=== PATIENT | female | born 1990 | race Caucasian/White ===

== ENCOUNTER 2019-11-02 11:37 | Emergency (ER) | payer OTHER ==
[~2019-11-02 11:37] MED LIST: CEPHALEXIN500 M2 PO; MORGIDOX 1X100100 MG PO
[2019-11-02] MEDS ORDERED: SINGULAIR 110 MG/TAB PO (11:47)
[2019-11-02 12:41] VITALS: BP 156/81
== END 2019-11-02 12:38 | disposition home or self-care (01) ==
LOC: ED 11:37
DX: S93.402A Sprain of unspecified ligament of left ankle, initial encounter (principal); X50.1XXA Overexertion from prolonged static or awkward postures, initial encounter; Y92.009 Unspecified place in unspecified non-institutional (private) residence as the place of occurrence of the external cause
CPT/HCPCS: 15970; L4386

== ENCOUNTER 2021-11-27 16:52 | Emergency (ER) | payer MEDICAID ==
[~2021-11-27 16:52] MED LIST changes: +SINGULAIR 110 MG/TAB PO
[2021-11-27] MEDS ORDERED: DESYREL50 MG PO (17:05)
[2021-11-27] MEDS ORDERED: ESCITALOPRAM10 MG PO (17:05)
[2021-11-27] MEDS ORDERED: DIVALPROEX SOD250 MG PO (17:06)
[2021-11-27] MEDS ORDERED: FLUOXETINE40 MG PO (17:06)
[2021-11-27] MEDS ORDERED: RIZATRIPTAN BEN10 MG PO (17:06)
[2021-11-27] MEDS ORDERED: HYDROXYZINE HCL25 M1 PO (17:06)
[2021-11-27] MEDS ORDERED: PANTOPRAZOLE SO20 M1 PO (17:06)
[2021-11-27 17:46] LABS: BASO # 0.02 K/mm3 (0.02-0.10); EOS # 0.19 K/mm3 (0.04-0.40); EOS % 2.9 % (1.0-5.0); MEAN CELL VOLUME 95 fl (78-100); MEAN CORPUSCULAR HEMOGLOBIN 32 pg (27-31); MEAN CORPUSCULAR HGB CONC 34 g/dL (33-37); MEAN PLATELET VOLUME 9.5 fl (7.4-10.4); MONO # 0.53 K/mm3 (0.20-0.80); NEU # 3.72 K/mm3 (1.40-6.50); PLATELET COUNT 189 K/mm3 (130-400); RED BLOOD COUNT 4.02 M/mm3 (4.10-5.30); RED CELL DISTRIBUTION WIDTH 11.7 % (11.5-14.5); WHITE BLOOD COUNT 6.5 K/mm3 (4.8-10.8)
[2021-11-27 17:47] LABS: URINE WBC 0 /hpf (0-3)
[2021-11-27 18:00] LABS: ALBUMIN 4.1 g/dL (3.5-5.0); POTASSIUM 4.3 mmol/L (3.5-5.1)
[2021-11-27 18:01] LABS: CALCIUM 9.1 mg/dL (8.3-10.5)
[2021-11-27 18:03] LABS: TOTAL PROTEIN 7.2 g/dL (6.4-8.3)
[2021-11-27 18:04] LABS: TOTAL BILIRUBIN 0.4 mg/dL (0.2-1.2)
[2021-11-27 18:18] LABS: URINE APPEARANCE HAZY; URINE BILIRUBIN NEGATIVE (NEGATIVE); URINE COLOR YELLOW; URINE GLUCOSE NEGATIVE (NEGATIVE); URINE KETONE NEGATIVE (NEGATIVE); URINE NITRATE NEGATIVE (NEGATIVE); URINE PROTEIN(semi-quant) TRACE (NEGATIVE); URINE UROBILINOGEN NORMAL (NORMAL)
[2021-11-27 18:19] LABS: URINE BLOOD NEGATIVE (NEGATIVE); URINE LEUKOCYTE ESTERASE NEGATIVE (NEGATIVE); URINE MUCUS PRESENT (NOT PRESENT)
[2021-11-27 19:27] VITALS: BP 146/104
== END 2021-11-27 19:14 | disposition home or self-care (01) ==
LOC: ED 16:52
PROVIDERS: Family Medicine
DX: S93.402A Sprain of unspecified ligament of left ankle, initial encounter (principal); L03.116 Cellulitis of left lower limb; R10.31 Right lower quadrant pain; Z86.14 Personal history of Methicillin resistant Staphylococcus aureus infection; Z87.891 Personal history of nicotine dependence
CPT/HCPCS: J1885

== ENCOUNTER → 2022-03-20 | Outpatient (CLI) | payer BC, MEDICAID ==
[~2022-03-20] MED LIST changes: +DESYREL50 MG PO; +DIVALPROEX SOD250 MG PO; +ESCITALOPRAM10 MG PO; +FLUOXETINE40 MG PO; +HYDROXYZINE HCL25 M1 PO; +PANTOPRAZOLE SO20 M1 PO; +RIZATRIPTAN BEN10 MG PO
== END ==
LOC: VAS 13:29 → RAD 13:30
DX: M79.89 Other specified soft tissue disorders (principal)

== ENCOUNTER → 2022-03-23 | Outpatient (CLI) | payer MEDICAID | LOC: RAD 12:45 | DX: N63.10 Unspecified lump in the right breast, unspecified quadrant (principal) ==

== ENCOUNTER 2022-06-18 18:35 | Emergency (ER) | payer BC, MEDICAID ==
[~2022-06-18] VITALS: Ht 175.3 cm; Wt 124.5 kg
[2022-06-18] MEDS ORDERED: ORPHENADRINE C100 MG PO (20:38)
[2022-06-18] MEDS ORDERED: KETOROLAC10 MG PO (20:38)
[2022-06-18 20:47] VITALS: BP 136/73
== END 2022-06-18 20:48 | disposition home or self-care (01) ==
LOC: ED 18:35
DX: M54.50 Low back pain, unspecified (principal); Z87.891 Personal history of nicotine dependence; Z28.310 Unvaccinated for COVID-19
CPT/HCPCS: J1885; J2360

== ENCOUNTER → 2023-07-19 | Outpatient (CLI) | payer BC ==
[~2023-07-19] MED LIST changes: +AJOVY AUTO225 MG/1.5; +AMOXICILLIN AND1 TA2 PO; +CYCLOBENZAPRINE10 M1 PO; +DIVALPROEX SOD250 MG; +ELETRIPTAN HBR40 MG; +ESCITALOPRAM10 MG; +FENOFIBRATE145 MG; +FLUTICASON0.05 MG/Ac; +HYDROXYZINE HCL25 M1; +KETOROLAC10 MG PO; +NATURAL IRON65 MG PO; +ORPHENADRINE C100 MG PO; +PANTOPRAZOLE SO40 MG; +PREDNISONE1 MG; +PROAIR HFA0.09 MG/AC; +VITAMIN C500 M7 PO; +VITAMIN D350 MC1 PO
== END ==
LOC: RAD 15:54
DX: M48.061 Spinal stenosis, lumbar region without neurogenic claudication (principal)

== ENCOUNTER → 2023-11-21 | Outpatient (CLI) | payer BC | LOC: LAB 07:53 | DX: G43.711 Chronic migraine without aura, intractable, with status migrainosus (principal); R56.9 Unspecified convulsions ==

== ENCOUNTER → 2023-12-20 | Outpatient (CLI) | payer BC ==
[2023-12-20 08:09] LABS: HEMATOCRIT 38.7 % (37.0-47.0); HEMOGLOBIN 12.8 g/dL (12.5-16.0); MEAN CELL VOLUME 97 fl (78-100); MEAN CORPUSCULAR HEMOGLOBIN 32 pg (27-31); MEAN CORPUSCULAR HGB CONC 33 g/dL (33-37); MEAN PLATELET VOLUME 9.5 fl (7.4-10.4); PLATELET COUNT 219 K/mm3 (130-400); RED BLOOD COUNT 3.99 M/mm3 (4.10-5.30); RED CELL DISTRIBUTION WIDTH 12.2 % (11.5-14.5); WHITE BLOOD COUNT 5.4 K/mm3 (4.8-10.8)
[2023-12-20 08:19] LABS: ALBUMIN 3.9 g/dL (3.5-5.0)
[2023-12-20 08:21] LABS: CALCIUM 9.2 mg/dL (8.3-10.5)
[2023-12-20 08:22] LABS: TOTAL PROTEIN 6.6 g/dL (6.4-8.3)
[2023-12-20 08:24] LABS: TOTAL BILIRUBIN 0.5 mg/dL (0.2-1.2)
[2023-12-20 20:15] LABS: FOLATE (FOLIC ACID) 4.4 ng/mL (2.0-20.0)
[2023-12-20 21:23] LABS: SJOGRENS SSA 25 U/mL (0-99); SJOGRENS SSB 14 U/mL (0-99)
== END ==
LOC: LAB 07:41
PROVIDERS: Psychiatry & Neurology Neurology
DX: G62.9 Polyneuropathy, unspecified (principal); G57.13 Meralgia paresthetica, bilateral lower limbs

== ENCOUNTER → 2024-04-15 | Outpatient (CLI) | payer BC ==
[~2024-04-15] MED LIST changes: +Gadoterate 20 ML VIAL IV ONE
== END ==
LOC: RAD 12:56
DX: G62.9 Polyneuropathy, unspecified (principal); G43.711 Chronic migraine without aura, intractable, with status migrainosus
CPT/HCPCS: A9575